=== PATIENT | female | born 1970 | race Caucasian/White ===

== ENCOUNTER 2019-11-30 09:27 | Emergency (ER) | payer MEDICARE, BC ==
[2019-11-30 09:33] VITALS: BP 168/102; PULSE 107; RESP 18; TEMP 98.3
--- NOTE | 2019-11-30 09:55 | ED ---
Lower Extremity Injury HPI - General Chief Complaint: Extremity Injury, Lower Stated Complaint: rt knee pain Time Seen by Provider: 11/30/19 09:39 Source: patient, RN notes reviewed Mode of arrival: wheelchair Limitations: no limitations - History of Present Illness Initial Comments: This is a 49-year-old female presents emergency Department with chief complaint of right knee pain. Patient states that she was on a boat yesterday in and out of the boat and on a beach chair. She's not exactly sure what she did but states that she's had increasing pain since yesterday while she was on the boat. Patient denies any prior knee injuries she has had a recent right foot fracture. Patient states the pain is in the medial aspect she has been icing it and she took her pain medication at home. Patient states that she is just concerned because of the pain. She denies any calf pain or proximal thigh pain. Patient offers no other complaints. - Related Data Allergies Allergy/AdvReac Type Severity Reaction Status Date / Time Penicillins Allergy Nausea & Verified 11/30/19 09:28 Vomiting Sulfa (Sulfonamide Allergy Itching Verified 11/30/19 09:28 Antibiotics) Review of Systems ROS Statement: Those systems with pertinent positive or pertinent negative responses have been documented in the HPI. ROS Other: All systems not noted in ROS Statement are negative. 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 Absent: scleral icterus, conjunctival injection, periorbital swelling Respiratory exam: Present: normal lung sounds bilaterally. Absent: respiratory distress, wheezes, rales, rhonchi, stridor Cardiovascular Exam: Present: regular rate, normal rhythm, normal heart sounds. Absent: systolic murmur, diastolic murmur, rubs, gallop, clicks Extremities exam: Present: other (Right knee there is moderate swelling, tenderness with palpation there is no tenderness proximal or distal her right knee there is no laxity with anterior posterior there is mild discomfort with valgus, pedal pulses are equal bilaterally) Course Vital Signs 11/30/19 09:29 Temperature 98.3 F Pulse Rate 107 H Respiratory 18 Rate Blood Pressure 168/102 O2 Sat by Pulse 99 Oximetry Medical Decision Making - Medical Decision Making 49-year-old presented for knee pain x-rays reviewed no significant abnormality. Patient's symptoms were consistent with a right knee sprain. Patient will follow-up with orthopedics that she has no orthopedic physician. Patient continue her pain medication, ibuprofen, ice and elevation. Disposition Clinical Impression: Right knee sprain Disposition: HOME SELF-CARE Condition: Stable Instructions (If sedation given, give patient instructions): Knee Sprain (ED) Additional Instructions: Please return to the Emergency Department if symptoms worsen or any other concerns. Is patient prescribed a controlled substance at d/c from ED?: No Referrals: Patience Real DO [Primary Care Provider] - 1-2 days Time of Disposition: 10:24
--- NOTE | 2019-11-30 10:18 | XR ---
EXAMINATION TYPE: XR knee complete RT DATE OF EXAM: 11/30/2019 COMPARISON: NONE HISTORY: Pain TECHNIQUE: Three views are submitted. FINDINGS: Joint spaces are preserved. Osseous structures are intact. No acute fracture seen. IMPRESSION: 1. No acute fracture or dislocation.
== END 2019-11-30 10:37 | disposition home or self-care (01) ==
LOC: EC 09:27
DX: S83.91XA Sprain of unspecified site of right knee, initial encounter (principal); F17.200 Nicotine dependence, unspecified, uncomplicated; Z88.0 Allergy status to penicillin; Z88.2 Allergy status to sulfonamides; X50.9XXA Other and unspecified overexertion or strenuous movements or postures, initial encounter; Y93.89 Activity, other specified; Y92.832 Beach as the place of occurrence of the external cause
CPT/HCPCS: 99283

== ENCOUNTER → 2020-02-17 | Outpatient (CLI) | payer MEDICARE ==
--- NOTE | 2020-02-17 18:58 | MR ---
EXAMINATION TYPE: MR knee RT wo con DATE OF EXAM: 02/17/2020 COMPARISON: Radiograph 11/30/2019 HISTORY: 49-year-old female with right knee pain and swelling TECHNIQUE: Multiplanar, multisequence imaging of the right knee is performed without IV contrast. FINDINGS: The ACL and PCL are intact. There is edematous change on either side of the MCL fibers. Some loss of superficial fibers along the proximalmost femoral attachment. Small amount of fluid signal within the adductor anisa insertion just adjacent. LCL complex is intact. There is intermediate signal at the junction of the posterior horn and body of the medial meniscus. O therwise, both medial and lateral menisci are intact. Bicompartmental articular cartilage volumes are maintained. Mild diffuse thinning of trochlear articular cartilage and more moderate thinning along the superior half of the mid patellar articular cartilage. Small knee joint effusion. No sizable Quigley's cyst. Some fluid signal extending along the fibers of the quadriceps insertion. Normal popliteal artery anatomy. Mild generalized loss of overall muscle bulk. Mild patchy red marrow is present. No suspicious bone marrow replacement. IMPRESSION: 1. MCL sprain, primarily a grade 1 injury though with minimal partial thickness tearing of superficia l fibers at the proximalmost femoral attachment. 2. Small amount of fluid signal within the adjacent adductor anisa insertion suggests a small intras ubstance insertional tear. 3. Intermediate signal at the junction of the posterior horn and body of the medial meniscus. Given t hat the patient's injury was back in November, findings could reflect a site of healing/healed meniscal tear. 4. Mild degenerative change in the patellofemoral compartment. 5. Mild contusion or small intrasubstance tear at the quadriceps insertion.
== END | disposition home or self-care (01) ==
LOC: RADMRIMAIN 16:11
PROVIDERS: ATTEND Orthopaedic Surgery
DX: S83.411A Sprain of medial collateral ligament of right knee, initial encounter (principal); M17.11 Unilateral primary osteoarthritis, right knee